=== PATIENT | female | born 1965 | race Caucasian/White ===

== ENCOUNTER 2016-04-17 08:43 | Emergency (ER) | payer OTHER ==
[~2016-04-17] VITALS: Ht 167.6 cm; Wt 86.4 kg
[~2016-04-17 08:43] MED LIST: IBUP-1827 PO; LISI10TA PO; METO25TA6 PO
[2016-04-17 08:50] VITALS: BP 152/88; PULSE 77; RESP 18; O2SAT 96
[2016-04-17 08:52] VITALS: BP 152/88; PULSE 75; RESP 14; O2SAT 94
[2016-04-17 08:59] LABS: BASOPHILS % (AUTO) 0.7 % (0-3); MONOCYTES % (AUTO) 7.8 % (4-12); Mean Corpuscular Hemoglobin 30.1 pg (27.0-35.0); Mean Corpuscular Volume 91.4 fL (81-100); NEUTROPHILS % (AUTO) 60.5 % (40-74); Platelet Count 329 bil/L (150-400)
[2016-04-17 09:35] LABS: Magnesium 2.1 mg/dL (1.6-2.6)
--- NOTE | 2016-04-17 09:39 | DRSVH ---
PROCEDURE: X-RAY CHEST ONE VIEW, PORTABLE ([id number]) INDICATIONS: cp TECHNIQUE: One view of the chest was acquired. COMPARISON: [facility], CR, XR CHEST 1VW (PORTABLE), 09/28/2015, 13:55. FINDINGS: Surgical changes and devices: None. Lungs and pleura: No pleural effusions or pneumothorax. Lungs are clear. Mediastinum: Mediastinal contours appear normal. Heart size is normal. Bones and chest wall: No suspicious bony lesions. Overlying soft tissues appear unremarkable. IMPRESSION: No acute process. Dictated by: Donn Patel M.D. on 04/17/2016 at 9:37 Approved by: Donn Patel M.D. on 04/17/2016 at 9:37
[2016-04-17 09:41] LABS: TROPONIN T < 0.010 ug/L (0.0-0.011)
--- NOTE | 2016-04-17 10:14 | ED.REPORT ---
HPI-Chest Pain 40 and Over Date of Service Apr 17, 2016 ED Provider: Man Ross MD History of Present Illness: OCC Patient is a 50 year old female who presents to the ED after being referred by urgent care for chest discomfort onset 0700 this morning. She was reaching in the fridge when she developed sudden chest "cramping" that radiates to her neck. Her pain has since improved but is exacerbated by deep breaths. Associated symptoms include several episodes of diaphoresis and cough (onset one month ago). She denies dizziness, nausea, shortness of breath, or any other symptoms. She was given 4 Aspirin. Nursing Notes Stated Complaint: CHEST PAIN Chief Complaint: Chest Pain Nursing Notes Reviewed: Yes (AdvanDx, Synerscope not reconciled) Allergies: Coded Allergies: Sulfa (Sulfonamide Antibiotics) (Verified Allergy, Unknown, Hives, 04/17/16 ) hydrochlorothiazide (Verified Allergy, Unknown, Abdominal Pain, 04/17/16) Scheduled Lisinopril (Lisinopril) 10 Mg Tablet 10 MG PO DAILY Scheduled PRN Metoprolol Tartrate (Metoprolol Tartrate) 25 Mg Tablet 25 MG PO BID PRN PRN Tachycardia General Time Seen by MD: 10:07 Chief Complaint Chest pain Hx Obtained From: Patient Arrived By: Walk-in Sudden in Onset?: Yes Onset Occurred: 1 - 4 hours ago Similar Sx Previous: No Risk Factors )( CAD Risk Stratification Hypertension SmokingNo Diabetes mellitus, No Hyperlipidemia Risk factors reviewed )( TAD Risk Stratification HypertensionNo Risk factors reviewed )( PE Risk Stratification No , No Previous DVT Risk factors reviewed Past Medical History Past Medical History thyroid nodule Reports: Hypertension Family History Paternal grandfather PA at age 70 Smoking History Current Every Day Smoker (3/4 pack per day) Social History Alcohol Use: "Social" Drug Use: Denies drug use Ambulatory Status Independent Review of Systems Respiratory: Reports: Non-productive cough, Pleuritic pain, Denies: Shortness of breath Cardiovascular: Reports: Chest pain GI: Denies: Nausea Musculoskeletal: Reports: Neck pain Skin: Reports Diaphoresis Neurologic: Denies: Dizziness Complete sys rev & neg: except as marked. Physical Exam Initial Vital Signs Vital Signs (First) Date Time Temp Pulse Resp B/P Pulse Ox O2 Delivery O2 Flow Rate FiO2 04/17/16 08:50 36.6 77 18 152/88 96 Room Air Initial VS: Reviewed, Vital signs normal Head / Eyes: Atraumatic, Normocephalic Neck: Full range of motion Skin: Warm, Dry Neurologic: Alert, Oriented, Nonfocal Psychiatric: Mood/affect normal, Behavior normal, Normal thought content General/Constitutional: Awake, Alert, Well appearing, Well developed, Well nourished Respiratory / Chest: No respiratory distress Cardiovascular: Heart rate NL, Regular rhythm, Heart sounds NL, Peripheral circulation NL Abdomen: Atraumatic, Soft, Non-tender Interpretation & Diagnostics Lab Results Interpretation Result Diagram: 04/17/16 0833 04/17/16 0833 Test 04/17/16 08:33 04/17/16 09:53 04/17/16 10:50 White Blood Count 9.2th/mm3 (3.8-10.1) Red Blood Count 4.28mil/mm3 (3.90-5.20) Hemoglobin 12.9g/dL (12.0-15.6) Hematocrit 39.1% (35.0-46.0) Mean Corpuscular Volume 91.4fL (81-100) Mean Corpuscular Hemoglobin 30.1pg (27.0-35.0) Mean Corpuscular Hemoglobin Concent 33.0% (32.0-37.0) Red Cell Distribution Width 13.3% (12.3-15.4) Platelet Count 329bil/L (150-400) Neutrophils (%) (Auto) 60.5% (40-74) Lymphocytes (%) (Auto) 28.8% (14-46) Monocytes (%) (Auto) 7.8% (4-12) Eosinophils (%) (Auto) 2.0% (0-5) Basophils (%) (Auto) 0.7% (0-3) D-Dimer 1.5mg/L (<0.50) Sodium Level 138mEq/L (134-144) Potassium Level 4.1mEq/L (3.5-5.2) Chloride Level 100mEq/L (97-108) Carbon Dioxide Level 24mmol/L (18-29) Blood Urea Nitrogen 12mg/dL (6-24) Creatinine 0.54mg/dL (0.57-1.00) Estimat Glomerular Filtration Rate 170mL/min (>59) Glucose Level 122mg/dL (60-99) Calcium Level 9.9mg/dL (8.5-10.1) Magnesium Level 2.1mg/dL (1.6-2.6) Total Bilirubin 0.3mg/dL (0.0-1.2) Aspartate Amino Transf (AST/SGOT) 15U/L (0-50) Alanine Aminotransferase (ALT/SGPT) 13U/L (0-32) Alkaline Phosphatase 90U/L (25-150) Total Protein 7.7g/dL (6.4-8.4) Albumin 4.3g/dL (3.4-5.0) Hold Li Top Tube Received (Received) Hold Urine Received (Received) Troponin T < 0.010ug/L (0.0-0.011) Lab Results Interpretation: CBC normal CMP normal Troponin #1 negative #2 negative D-dimer elevated ECG Interpretation ECG Interpretation: Sinus rate 68 Left axis deviation Time: 09:11 Interpreted by: ED physician X-Ray Chest Interpretation Chest Xray Interpretation: IMPRESSION: No acute process. Dictated by: Donn Patel M.D. on 04/17/2016 at 9:37 Approved by: Donn Patel M.D. on 04/17/2016 at 9:37 View: Portable, 1 view Interpretation / Wet Read by: Interpret - Radiologist CT Chest Interpretation IMPRESSION: 1. No evidence of pulmonary embolism. Lungs are clear. Dictated by: Linda Babin M.D. on 04/17/2016 at 12:48 Approved by: Linda Babin M.D. on 04/17/2016 at 12:48 Study type: CT pulm angiogram Interpretation / Wet Read by: Interpret - Radiologist Re-Eval/Medical Decision Med Decision/Clinical Course This is a 50-year-old female presents with atypical chest pain with a pleuritic component that started this morning. It persisted for several hours and really got her attention, so she went to urgent care and was sent over to the ED for further evaluation. She has no prior history of cardiac illness, no prior history of PE or DVT risk factors, no infectious symptoms. She has had a mild cough. On exam she is in no distress. Lungs are clear, she is not tachypneic, dyspneic. She has no signs of heart failure. Blood work is notable for an elevated d-dimer, but serial troponins were negative. CT angios negative. The patient declined any pain medicine Department reports his symptoms are very minimal. At this point she has had prolonged. His symptoms, normal EKGs, serial enzymes, and a negative CT and U-I am not finding evidence of dangerous etiology. The patient be safely discharged with follow-up. Routine precautions reviewed. Patient is discharged in stable condition Source of Hx: Old records Time of Eval: 12:52 Patient Status: Condition improved Re-Evaluation/Progress Note: Discussed imaging results and plan for discharge. Patient understands and agrees with plan. All questions addressed at this time. Differential Diagnosis: Positive: Chest pain, acute, Negative: Acute coronary syndrome, Acute myocardial infarct, Congestive heart failure, Dysrhythmia, Esophageal rupture, Gun shot wound chest, Hypertroph cardiomyopathy, Pneumomediastinum, Pneumonia, Pneumothorax, Pulmonary edema, Rib fracture Counseled Regarding: Diagnosis, Lab results, Need for follow-up, When/why to return to ED Discharge & Departure Primary Impression: Non-cardiac chest pain Disposition: Home Discharge Condition All VS Reviewed: Yes Condition: Stable Additional Instructions: 1. A dangerous cause of the chest pain was not identified. 2. Your blood tests raised the question of the potential fora type of problem called a pulmonary embolus or a blood clot-however you underwent a CT scan that was negative for this. 3. Symptoms are expected to improve with time. 4. Ibuprofen 400-600 mg 3 times a day as needed for the pleuritic discomfort ( pain with inspiration) 5. Increase as tolerated. 6. Return if new or worsening symptoms. Referrals: Dileep Burgos MD (PCP) Scribe Attestation Portions of this note were transcribed by Bert Mckeon. I, Dr. Ross personally performed the history, physical exam and medical decision-making; I reviewed and confirmed the accuracy of the information in the transcribed note. Signed by: Bert Mckeon 04/17/16, 1256 copies to: Dileep Burgos MD, Matthew F MD Apr 17, 2016 10:13 BERT MCKEON Apr 17, 2016 10:39
[2016-04-17 11:14] VITALS: BP 119/74; PULSE 69; RESP 18; O2SAT 93
--- NOTE | 2016-04-17 12:50 | DRSVH ---
PROCEDURE: CT ANGIO CHEST PULMONARY EMBOLISM ([id number]) INDICATIONS: CP dimer + TECHNIQUE: After the administration of intravenous contrast, 2 mm thick sections acquired from the pulmonary api renetta to the posterior costophrenic angles. 3-dimensional maximum intensity projection (MIP) coronal a nd sagittal reformats were then acquired through the thorax. For radiation dose reduction, the follo wing was used: automated exposure control, adjustment of mA and/or kV according to patient size. COMPARISON: [facility], CT, CHEST ANGIO-PE, 01/22/2013, 18:11. [facility], CT, CT ANGIO CHEST PE, 09/28/2015, 15:26. FINDINGS: Image quality: Excellent. Pulmonary arteries: Pulmonary arteries are normal in size, and demonstrate no intraluminal filling d efects to suggest central pulmonary embolism. Lungs and pleura: 2 mm right lower lobe nodule, series 5, image 34. It is unchanged compared to 01/06 10/18. No pleural effusions or pneumothorax. Central and peripheral airways are patent. Mediastinum: Heart size is normal, without pericardial effusion. No mediastinal or hilar adenopathy . Thoracic aorta is normal in caliber and enhancement. Esophagus is normal in caliber, without hiat al hernia. Bones and chest wall: No suspicious bony lesions. Ribs and thoracic spine appear intact throughout. Thyroid gland is enlarged and heterogenous, unchanged. No axillary or supraclavicular adenopathy. Abdomen: Visualized upper abdominal solid organs appear normal in the early arterial phase of enhanc ement. IMPRESSION: 1. No evidence of pulmonary embolism. Lungs are clear. Dictated by: Linda Babin M.D. on 04/17/2016 at 12:48 Approved by: Linda Babin M.D. on 04/17/2016 at 12:48
[2016-04-17 12:59] VITALS: BP 107/65; PULSE 89; RESP 16; O2SAT 97
[2016-04-17 13:03] VITALS: BP 107/65; PULSE 89; RESP 16; O2SAT 97
== END 2016-04-17 13:03 | disposition home or self-care (01) ==
LOC: SED 08:43
DX: R07.89 Other chest pain (principal); X50.1XXA Overexertion from prolonged static or awkward postures, initial encounter; Y92.9 Unspecified place or not applicable; Y93.89 Activity, other specified; Y99.8 Other external cause status; R05 Cough; R61 Generalized hyperhidrosis; I10 Essential (primary) hypertension; F17.200 Nicotine dependence, unspecified, uncomplicated; Z88.2 Allergy status to sulfonamides; Z88.8 Allergy status to other drugs, medicaments and biological substances
CPT/HCPCS: 36415; 71010; 71275; 80053; 83735; 84484; 85025; 85379; 93005; 99285; Q9967

== ENCOUNTER 2016-10-02 05:45 | Day surgery (SDC) | payer OTHER ==
[~2016-10-02] VITALS: Ht 167.6 cm; Wt 89.1 kg
[2016-10-02] VITALS (10 sets, daily range): BP systolic 93–115; BP diastolic 45–67; PULSE 70–88; RESP 12–18; O2SAT 94–97
[~2016-10-02 05:45] MED LIST changes: -IBUP-1827 PO; +[UNRECOGNIZED DRUG - OTHER]
[2016-10-02] MEDS ORDERED: Ondansetron 2 mg/mL 2 mL Inj ONE (05:46)
[2016-10-02] MEDS ORDERED: Phenylephrine 10,000 mCg/mL Inj ONE (05:46)
[2016-10-02] MEDS ORDERED: Vasopressin 20 Unit/mL Inj ONE (05:46)
[2016-10-02] MEDS ORDERED: Dexamethasone 4 mg/mL Inj ONE (05:46)
[2016-10-02] MEDS ORDERED: Glycopyrrolate 0.2 MG/ML 1mL Inj ONE (05:46)
[2016-10-02] MEDS ORDERED: Rocuronium 10 mg/mL 5 mL Inj ONE (05:46)
[2016-10-02] MEDS ORDERED: fentaNYL-PF 50 mCg/mL 2 mL Inj ONE (05:46)
[2016-10-02] MEDS ORDERED: EPHEDrine/NS 5 mg/mL 5 mL Syringe ONE (05:46)
[2016-10-02] MEDS ORDERED: Neostigmine 1 mg/mL 10 mL Inj ONE (05:46)
[2016-10-02] MEDS ORDERED: MetoCLOpramide 5 mg/mL 2 mL Inj ONE (05:46)
[2016-10-02] MEDS ORDERED: Propofol 10,000 mCg/mL 20 mL Inj ONE (05:46)
[2016-10-02] MEDS: Lactated Ringer's 1,000 ML IV SCH ×2 (05:49→07:27)
[2016-10-02] MEDS ORDERED: MULT-1018 PO (05:59)
[2016-10-02] MEDS ORDERED: IBUP200C PO (05:59)
[2016-10-02] MEDS ORDERED: Bupivacaine-MPF 0.5% W/EPI 30 mL Inj INJ ONE (08:14)
[2016-10-02] MEDS ORDERED: Lactated Ringer's 500 ML IV PRN (08:18)
[2016-10-02] MEDS ORDERED: Lactated Ringer's 1,000 ML IV SCH (08:18)
--- NOTE | 2016-10-02 08:18 | PCM.HPANE ---
Patient Data Surgeon Admitting Provider: Attending Provider:Raymond Cullen MD Primary Care Physician:Dileep Burgos MD Other Provider:Ena Barron Anesthesia Reason for Visit Left Thryoid Uni Nodule Goiter Ht/WT & BMI Height (Feet): 5 Height (Inches): 6.00 Weight (Kilograms): 89.110 Body Mass Index 31.00 Allergies Coded Allergies: Sulfa (Sulfonamide Antibiotics) (Verified Allergy, Intermediate, Hives, ) hydrochlorothiazide (Verified Allergy, Mild, Abdominal Pain, 10/01/16) Uncoded Allergies: STRAWBERRY'S (Allergy, Intermediate, Rash and itch, 10/01/16) Past Anesthesia History Anesthesia History: Denies:: Abnormal Airway, Anesthesia Reactions, Difficult Intubation, Fam Anesthesia Reaction, Fam Malignant Hypertherm, Malignant Hyperthermia Diabetes History Hx Diabetes?: No MRSA MRSA: No Medications Hypertension Medication: Yes (Metoprolol) Home Meds Incl Beta [place]: Yes Date Beta [place] Taken: Oct 02, 2016 Time Beta [place] Taken: 0500 Reported Medications Ibuprofen 200 Mg [id number] Mg PO QID PRN For Pain Ref 0 10/02/16 Multivitamin (Multi Vitamin Daily)1 Each Tablet1 Each PO DAILY 30 Days Ref 0 10/02/16 [alpra] No Conflict Check 10/01/16 Metoprolol Tartrate 25 Mg [id number] Mg PO BID PRN Tachycardia 30 Days Ref 0 09/28/15 Lisinopril 10 Mg [id number] Mg PO DAILY 30 Days Ref 0 09/28/15 Discontinued Reported Medications [alpra] No Conflict Check 10/01/16 History History of ENT Problems?: No HEENT History: Denies:: Abnormal Airway Cataracts Difficult Intubation Dysphagia Glaucoma Hearing Problem Sinus Problem TMJ Denture Type: None Teeth Condition: Within Normal Limits Broken Teeth Hx of Heart Problems?: No Cardiovascular History: Positive for:: Chest Pain (related to anxeity, tachycardic, taking Metoprolol) Hypertension Irregular Heartbeat (tachycardia) Peripheral Vascular (vericose veins left leg with stripting 2000) Denies:: AICD Abdominal Aortic Aneurism Atrial Fibrillation Cardiac Surgery Congestive Heart Failure Coronary Artery Disease Edema Heart Murmur Pacemaker Rheumatic Fever Thrombophlebitis Valvular Heart Disease Hx of Respiratory Problem?: No Respiratory History: Positive for:: Chest Surgery (realted anexity ) Denies:: Asthma COPD Cough Dyspnea Emphysema Hemoptysis Oxygen Administration Pneumonia Pulmonary Embolism Tuberculosis Use of C-PAP Machine Use of Inhalers / NEBS Hx Neurologic Problems?: No Neurological History: Denies:: Alzheimer's Disease CVA Dementia Dizziness Headaches Multiple Sclerosis Parkinson's Disease Peripheral Neuropathy Seizures TIA Hx of GI Problems?: No Gastrointestinal History: Denies:: Cirrhosis Diverticulitis Gall Bladder Disease Gastroesphageal Reflux Gastrointestinal Bleeding Heartburn Hepatitis Hiatal Hernia Liver Disease Rectal Bleeding Hx of Problems?: No Genitourinary History: Denies:: HX of Hemodialysis Kidney Stones Urinary Tract Infection HX of Peritoneal Dialysis: No Female Hx: Denies:: Currently Endometriosis Pelvic Inflammatory Problems with Breasts? Skin History: Positive for:: History Skin Disorders? Denies:: Pressure Ulcers Hx Musculoskeletal Problems?: No Musculoskeletal History: Denies:: Back Injury Degenerative Joint Fibromyalgia Joint Replacement Musculoskeletal Trauma Myasthenia Gravis Osteoarthritis Rheumatoid Arthritis Systemic Lupus Hx of Psycho/Social Problems?: Yes Psycho Social History: Positive for:: Anxiety (Alprazolam) Denies:: Bipolar Disorder Hx Depression Suicide Attempt Hx Surgeries?: Yes (2000 vein stipping) Other History: Positive for:: Endocrine Disease Thyroid Disease (Hyperthyroidism) Denies:: Cancer Hospitalization History Blood Transfusions: Positive for:: Accept Blood Products? Denies:: Blood Transfuse Reaction Blood Transfusions Hx Diabetes: No Hx Alcohol Use: NoHx Substance Use: No Smoking Status: Current Every Day Smoker Have You Smoked inLast 12 mo: YesApprox How Many Cigarettes/day: 15 cigs Stop/Bang S-Snoring: Do You Snore Loudly: No T-Tired: feel tired, fatigued: Yes O-Obsered: Observed not breath: No P-Blood Pressure: treated: Yes B- Body Mass Index > 35 kg/m2: No A- Age over 50: Yes N- Neck Large Circumference: No G- Gender Male: No RENETTA Total Score: 3 Risk Assessment Category Category 1A: Patient has history of documented sleep apnea, and HAS NOT received any narcotic, sedative or anesthesia administration during this stay. Category 1B: Patient has history of documented sleep apnea, and HAS received any narcotic , sedative or anesthesia administration during this stay Category 2: Patient has SUSPECTED Obstructive Sleep Apnea, and HAS received any narcotic , sedative or anesthesia administration during this stay. Category 3: Patient has SUSPECTED Obstructive Sleep Apnea and HAS NOT received narcotic, sedative or anesthesia administration during this stay. Category 4: Outpatient in Procedural Areas with known sleep apnea or who screen positive for High Risk via the STOP/BANG questionnaire. Exam Exam Vital Signs Vital Signs Date Time Temp Pulse Resp B/P Pulse Ox O2 Delivery O2 Flow Rate FiO2 10/02/16 06:20 36.1 88 18 115/67 97 Room Air General Appearance: Alert, Oriented X3, Cooperative, No Acute Distress HEENT/AIRWAY: MP 2, Neck Movement (FROM, large neck goiter), Mouth Opening (3 FBMO) Lungs: Clear to Auscultation, Normal Air Movement Heart: Exam Unremarkable, Regular Rate/Rhythm, No Murmurs/Rubs/Gallops Meds/Labs/Diagnostics Admission Meds Current Medications Lactated Ringer's (Lr) 1,000 ml @ 120 mls/hr Q8H20M IV Last administered on t 05:49; Start 10/02/16 at 05:00; Stop 10/02/16 at 13:19 Plan Impression Patient chart reviewed, patient interviewed and anesthestic plan with risks, benefits, and alternatives discussed, and informed consent obtained. ASA Physical Status: ASA2 Mod Systemic Disease Anesthetic Plan: GA Bene/Risks/Altern/Consents: Yes HP Complete Prior to Induction: Yes Pernell Gonzalez MD Oct 02, 2016 06:56
[2016-10-02] MEDS ORDERED: Atropine 0.4 mg/mL Inj IVPUSH PRN (08:20)
[2016-10-02] MEDS ORDERED: HYDROmorphone 1 mg/mL Inj IVPUSH PRN (08:20)
[2016-10-02] MEDS ORDERED: Phenylephrine 10,000 mCg/mL Inj IVPUSH PRN (08:20)
[2016-10-02] MEDS ORDERED: fentaNYL-PF 50 mCg/mL 2 mL Inj IVPUSH PRN (08:20)
[2016-10-02] MEDS ORDERED: Ondansetron 2 mg/mL 2 mL Inj IVPUSH PRN (08:20)
[2016-10-02] MEDS ORDERED: EPHEDrine Sulfate 50 mg/mL Inj IVPUSH PRN (08:20)
[2016-10-02] MEDS ORDERED: MetoCLOpramide 5 mg/mL 2 mL Inj IVPUSH PRN (08:20)
[2016-10-02] MEDS ORDERED: Labetalol 5 mg/mL 4 mL Inj IV PRN (08:20)
[2016-10-02] MEDS ORDERED: HYDROcodone-APAP 5-325 mg Tablet PO PRN (08:55)
--- NOTE | 2016-10-02 08:57 | PCM.DISURG ---
Surgical Discharge Instruction Date of Service Oct 02, 2016 Dates of Hospitalization Date of Hospital Admission Providers Admitting Physician: Primary Care Physician: Dileep Burgos MD Attending Physician: Raymond Cullen MD Discharge Diagnosis Discharge Diagnosis Left thyroid nodule Diet Discharge Diet: No restrictions Activity Discharge Activity-General: No restrictions, Activity as pain allows Dressing and Incisional Care Dressing Instructions: Dermabond will peel off gradually Hygiene: May shower Follow Up Plan Follow Up Plan With Dr. Cullen in surgery clinic in 10-14 days Call your provider for: Fever (over 101.5), Discharge @ incision, pus discharge Raymond Cullen MD Oct 02, 2016 08:57
--- NOTE | 2016-10-02 09:06 | PCM.SURGOP ---
Surgical Operative Report Date of Service: Oct 02, 2016 Pre Operative Diagnosis Left thyroid nodule with uninodular goiter Post Operative Diagnosis Same Procedure: Left thyroid lobectomy Surgeon and Roving Hand: Surgeon: Raymond Cullen MD Assistants: Danny Darling MD; Antelmo Barajas PA-C Indication for Procedure 51-year-old woman who has had a long-standing goiter secondary to a single 6 cm nodule in the left thyroid lobe. She has compressive symptoms in the neck and dysphagia. Fine-needle aspiration in 2010 was benign. She was clinically euthyroid. After discussion of risks and benefits, she agreed to proceed with left thyroid lobectomy. Findings: The left inferior thyroid nodule was soft, without evidence of invasion of surrounding structures. The left superior parathyroid gland was visualized and preserved, which was normal. Procedure Details After smooth induction of general endotracheal anesthesia, she was placed in the modified beachchair position with both arms tucked, and was prepped and draped in wide sterile fashion. A procedural pause was performed according to the SCOAP checklist, and all were found to be in agreement. A transverse collar incision was made in the skin lines. Dissection was carried through the subcutaneous tissue with electrocautery until the platysma muscle was divided. Subplatysmal skin flaps were raised superiorly and inferiorly. The median raphae was incised and the left sternal hyoid and sternal thyroid muscles were sequentially elevated off the thyroid gland. The large thyroid nodule was bulging through the median raphae and extending onto the right side. The strap muscles were retracted. There was a large left inferior thyroid vein which was dissected free and ligated with 3-0 silk suture and divided. Just lateral and deep to this, the left recurrent laryngeal nerve was visualized and preserved. The branches of the left middle thyroid vein were divided with the LigaSure device. A plane was developed between the left cricothyroid muscle and the superior pole of the left thyroid gland. The left superior pole vessels were then taken down sequentially using the LigaSure device. The left inferior thyroid artery was divided with the LigaSure device. The thyroid isthmus was skeletonized. A pretracheal plane was developed, and the thyroid isthmus was divided with the LigaSure device. The left ligament of Davis was skeletonized and divided with the LigaSure device, and the left thyroid lobe was completely dissected free. A suture was placed in the superior pole, and it was sent for permanent pathology. The large thyroid nodule was soft, without particular concerns for malignancy. It was no lymphadenopathy in the left neck. The left superior parathyroid gland was visualized and preserved, which looked normal. The left inferior parathyroid gland was not visualized. Hemostasis was adequate. The strap muscles were reapproximated with interrupted 3-0 Vicryl suture. The platysma muscle was closed with interrupted 3-0 Vicryl suture. The skin incision was closed with a running 4-0 Monocryl subcuticular stitch. Dermabond was applied to the skin as a dressing. At the end of the case all needle and sponge counts were correct 2. The patient was awakened from anesthesia without difficulty, and taken to the recovery room in satisfactory condition, having tolerated the procedure well. Complications There were no periprocedural complications identified. Surgical Specimen Removed: Yes Specimen sent to Pathology: Yes Surgical Specimen description: Left thyroid lobe Anesthetic Plan: GA Grafts, Implants: None Output, Estimated Blood Loss: 10 Blood Administration during gore: No Drains: None Catheters: None copies to: Dionisio Britton MD; Dileep Burgos MD, Joshua D MD Oct 02, 2016 09:06
[2016-10-02] MEDS ORDERED: Lactated Ringer's 1,000 ML IV ONE (09:42)
[2016-10-02] MEDS ORDERED: HYDROcodone-APAP 7.5-325 mg/15 mL 15 mL Solution ONE (10:05)
--- NOTE | 2016-10-02 12:27 | PCM.ANEP1 ---
Post Anesthesia PACU Phase 1 Assessment Vital Signs Vital Signs Date Time Temp Pulse Resp B/P Pulse Ox O2 Delivery O2 Flow Rate FiO2 10/02/16 11:34 72 16 98/59 95 Room Air 10/02/16 09:50 70 16 100/50 94 Room Air 10/02/16 09:45 72 12 93/49 96 Nasal Cannula 2 10/02/16 09:40 73 16 98/50 96 Nasal Cannula 2 10/02/16 09:30 36.3 82 15 103/48 96 Nasal Cannula 2 10/02/16 09:25 81 15 98/59 96 Nasal Cannula 2 10/02/16 09:20 84 14 104/49 94 Nasal Cannula 2 10/02/16 09:15 82 17 106/51 97 Nasal Cannula 2 10/02/16 09:10 36.4 83 17 109/45 97 Simple Mask 8 10/02/16 06:20 36.1 88 18 115/67 97 Room Air Anesthetic Administered: GA Level of Alertness: Awake, talking YOO's with Equal Strength: Yes Pain: No Nausea or Vomiting: No CV Function & Hydration Stable: No Airway Device: N/A Oxygen Delivery: Room Air Lungs: Clear to Auscultation, Normal Air Movement Dermatome Level: Full Sensation PACU Phase 2 Assessment Complications: No Follow up Care: N/A Patient Instructions Provided: N/A Pernell Gonzalez MD Oct 02, 2016 12:27
--- NOTE | 2016-10-04 10:38 | PATH ---
SURGICAL PATHOLOGY Attending Physician:Slim Lara CASE STATUS: Signed Out PATIENT NAME: LETICIA MEAD PID: [id number] : 1965 DATE COLLECTED:10/02/2016 22:57 SPECIMEN: Thyroid, Lobectomy CLINICAL HISTORY: LEFT THYROID UNINODULE GOITER 1). LEFT THYROID LOBE FINAL DIAGNOSIS: 1.LEFT THYROID LOBE (80 GRAMS): MULTIPLE BENIGN HYPERPLASTIC FOLLICULAR NODULES. NEGATIVE FOR ATYPIA AND MALIGNANCY. NO PARATHYROID TISSUE IDENTIFIED. ICD10 E04.9 GROSS DESCRIPTION: The specimen is received in formalin, labeled with the patient's name, sublabeled as left thyroid lobe, suture superior pole, and consists of a thyroid gland left lobe (80 g, is 7.6 x 5.3 x 4.2 cm). A single tail black suture indicates the superior pole. The capsule is red-brown smooth and shiny. The parenchyma is red-brown and contains variegated nodularity (0.7 x 0.5 x 0.5 cm-5.4 x 5.0 x 4.2 cm). Ink code: purple-anterior; yellow-posterior. Section code: (A) superior pole, perpendicularly sectioned, entirely submitted; (B-G) left lobe, serially sectioned and submitted SI, security representative; (H) inferior pole, perpendicularly sectioned, security representative. 10/03/16 JM MICRO DESCRIPTION: See diagnosis. ICD-9 CODES: CPT CODES: 1: 01760 Electronically Signed Out Patrick Connor MD [facility] Pathology [facility] [address], [place] [address] Technical component performed at [facility], [address], [place], [address]
== END 2016-10-02 23:59 | disposition home or self-care (01) ==
LOC: SAS 05:45
PROVIDERS: ATTEND Student in an Organized Health Care Education/Training Program
DX: E04.1 Nontoxic single thyroid nodule (principal); E78.5 Hyperlipidemia, unspecified; I10 Essential (primary) hypertension; E05.90 Thyrotoxicosis, unspecified without thyrotoxic crisis or storm; R00.0 Tachycardia, unspecified; F41.9 Anxiety disorder, unspecified; F17.210 Nicotine dependence, cigarettes, uncomplicated
CPT/HCPCS: 60210; J1100; J2250; J2370; J2405; J2710; J2765; J3010; J7120